=== PATIENT | female | born 1940 | race Caucasian/White ===

== ENCOUNTER → 2018-09-08 | Outpatient (CLI) | payer OTHER ==
--- NOTE | 2018-09-08 14:11 | 2DMMODE ---
[facility] [address] [place] [address] 2 D/M-MODE ECHOCARDIOGRAM Name: MEENAKSHI JOHANSEN Room #: [facility]#: [id number] ������������� Admission: 09/08/18 ������������� Attend Phys: Ag Vivas Discharge: ��� ������������� ��� Date of : 38 Date of Service: 09/08/18 1411 �� Report #: [id number] �������� ��������������������������������������������[id number] THIS REPORT FOR: //name// APPROVED REPORT Study performed: 09/08/2018 13:00:13 EXAM: Comprehensive 2D, Doppler, and color-flow Echocardiogram Patient Location: Out-Patient Room #: Echo lab 2 Status: routine BSA: 1.64 HR: 65 bpm BP: 126/68 mmHg Rhythm: NSR Other Information Study Quality: Good Indications Palpitations 2D Dimensions RVDd: 30.30 mm IVSd: 10.48 (7-11mm) LVOT Diam: 18.34 (18-24mm) LVDd: 39.63 mm PWd: 10.12 (7-11mm) Ascending Ao: 32.12 (22-36mm) LVDs: 27.07 (25-40mm) Aortic Root: 29.43 mm IVC: 17.00 mm Volumes Left Atrial Volume (Systole) Single Plane 4CH: 33.88 mL Single Plane 2CH: 49.49 mL LA ESV Index: 30.00 mL/m2 Aortic Valve AoV Peak Calvin.: 1.26 m/s AO Peak Gr.: 6.39 mmHg LVOT Max P.23 mmHg LVOT Max V: 1.03 m/s GIN Vmax: 2.15 cm2 AI Vmax: 3.60 m/s AI Fergus: 1.87 m/s2 AI PHT: 557.68 ms Mitral Valve [facility] [address] [place] [address] 2 D/M-MODE ECHOCARDIOGRAM Name: MEENAKSHI JOHANSEN Room #: [facility]#: [id number] ������������� Admission: 09/08/18 ������������� Attend Phys: Ag Vivas Discharge: ��� ������������� ��� Date of : 38 Date of Service: 09/08/18 1411 �� Report #: [id number] �������� ��������������������������������������������[id number] E/A Ratio: 0.5 MV Decel. Time: 244.84 ms MV E Max Calvin.: 0.56 m/s MV A Calvin.: 1.07 m/s MV PHT: 71.00 ms IVRT: 124.57 ms Pulmonary Valve PV Peak Calvin.: 0.94 m/s PV Peak Gr.: 3.55 mmHg Pulmonary Vein P Vein S: 0.50 m/s P Vein A: 0.31 m/s P Vein D: 0.32 m/s P Vein A Dur.: 101.5 msec P Vein S/D Ratio: 1.56 Tricuspid Valve TR Peak Calvin.: 2.51 m/s TR Peak Gr.: 25.16 mmHg PA Pressure: 30.00 mmHg Left Ventricle The left ventricle is normal size. There is normal LV segmental wall motion. There is normal left ventricular wall thickness. Left ventricular systolic function is normal. The left ventricular ejection fraction is within the normal range. LVEF is 55-60%. Grade I - abnormal relaxation pattern. Right Ventricle The right ventricle is normal size. The right ventricular systolic function is normal. Atria The left atrium size is normal. The right atrium size is normal. Aortic Valve The aortic valve is normal in structure. Mild aortic regurgitation. There is no aortic valvular stenosis. Mitral Valve The mitral valve is normal in structure. Mild mitral regurgitation. No evidence of mitral valve stenosis. Tricuspid Valve The tricuspid valve is normal in structure. There is mild to moderate tricuspid regurgitation. Estimated PAP 30 mmHg. There is mild [facility] [address] [place] [address] 2 D/M-MODE ECHOCARDIOGRAM Name: MEENAKSHI JOHANSEN Room #: [facility] Ben#: [id number] ������������� Admission: 09/08/18 ������������� Attend Phys: Ag Vivas Discharge: ��� ������������� ��� Date of : 38 Date of Service: 09/08/18 1411 �� Report #: [id number] �������� ��������������������������������������������[id number] pulmonary hypertension. Pulmonic Valve The pulmonary valve is normal in structure. There is no pulmonic valvular regurgitation. Great Vessels The aortic root is normal in size. IVC is normal in size and collapses >50% with inspiration. Pericardium There is no pericardial effusion. <Conclusion> The left ventricle is normal size. There is normal left ventricular wall thickness. Left ventricular systolic function is normal. Grade I - abnormal relaxation pattern. The right ventricle is normal size. The left atrium size is normal. Mild aortic regurgitation. Mild mitral regurgitation. There is mild to moderate tricuspid regurgitation. Estimated PAP 30 mmHg. ��������������������������������������������� <ELECTRONICALLY SIGNED> ���������������������������������������� By: Ruddy Cueva MD ��������������������������������������������� 09/08/18 141 10 10 Ruddy Cueva MD /INF
== END ==
LOC: CV 08:46
DX: I08.3 Combined rheumatic disorders of mitral, aortic and tricuspid valves (principal); I27.20 Pulmonary hypertension, unspecified